=== PATIENT | female | born 1970 | race Hispanic/Latino ===

== ENCOUNTER 2021-01-27 18:14 | Inpatient (IN) | payer OTHER ==
[~2021-01-27] VITALS: Ht 160 cm; Wt 94.8 kg
[2021-01-27] MEDS ORDERED: SODIUM CHLORIDE 0.9% 1000ML 1,000 ML IV STA (18:17)
[2021-01-27 18:59] LABS: BASOPHILS % 0.4 % (0.0-1.0); EOSINOPHILS # (AUTO) 0.2 (0.0-0.4); EOSINOPHILS % 2.7 % (0.0-6.0); HEMOGLOBIN 12.7 g/dL (12.0-16.0); LYMPHOCYTES # (AUTO) 2.8 (1.0-3.2); LYMPHOCYTES % 37.8 % (18.0-39.1); MEAN CORPUSCULAR HEMOGLOBIN 29.7 pg (28-32); MEAN CORPUSCULAR HGB CONC 32.6 g/dL (31-35); MEAN CORPUSCULAR VOLUME 91.1 fL (81-99); MONOCYTES # (AUTO) 0.5 (0.2-0.8); MONOCYTES % 6.7 % (4.4-11.3); NEUTROPHILS # (AUTO) 3.9 (2.1-6.9); PLATELET COUNT 149 x10e3/uL (140-360); RED BLOOD COUNT 4.28 x10e6/uL (3.6-5.1); RED CELL DISTRIBUTION WIDTH 13.2 % (11.7-14.4)
[2021-01-27 19:21] LABS: ALBUMIN 4.1 g/dL (3.5-5.0); ANION GAP 19.6 mmol/L (8-16); CALCIUM 9.3 mg/dL (8.4-10.2); CREATININE, SERUM 0.75 mg/dL (0.57-1.11); POTASSIUM 3.6 mmol/L (3.5-5.1)
[2021-01-27 19:27] LABS: CREATINE KINASE MB 0.3 ng/mL (0-5.0)
[2021-01-27] MEDS ORDERED: Morphine 4mg Syringe 4 MG/ML INJ IV STA (20:12)
[2021-01-27] MEDS ORDERED: PREDNISONE 20 MG TAB PO STA (20:24)
[2021-01-27] MEDS ORDERED: ONDANSETRON HCL INJ 2MG/ML 2ML 2 MG/ML VIAL ONE (20:58)
[2021-01-27] MEDS ORDERED: ONDANSETRON HCL INJ 2MG/ML 2ML 2 MG/ML VIAL IV STA (21:07)
[2021-01-27 21:44] VITALS: BP 138/83
[2021-01-27 21:57] VITALS: BP 138/83
[2021-01-27] MEDS: ACETAMINOPHEN 325 MG TAB PO PRN (22:39)
[2021-01-27] MEDS ORDERED: METFORMIN HCL500 MG PO (23:10)
[2021-01-27] MEDS ORDERED: LISINOPRIL5 MG PO (23:10)
[2021-01-27] MEDS ORDERED: LEVOTHYROXINE50 MCG PO (23:10)
[2021-01-27] MEDS ORDERED: GLIPIZIDE5 MG PO (23:10)
[2021-01-27] MEDS ORDERED: JARDIANCE25 MG PO (23:10)
[2021-01-27] MEDS: ACYCLOVIR 200 MG CAP PO SCH (23:58)
[2021-01-28] VITALS (9 sets, daily range): BP systolic 101–135; BP diastolic 61–77
[2021-01-28] MEDS: Morphine 4mg Syringe 4 MG/ML INJ IV PRN ×3 (02:48→17:20)
[2021-01-28 05:36] LABS: BASOPHILS % 0.3 % (0.0-1.0); EOSINOPHILS # (AUTO) 0.1 (0.0-0.4); EOSINOPHILS % 0.9 % (0.0-6.0); HEMATOCRIT 36.5 % (34.2-44.1); HEMOGLOBIN 11.8 g/dL (12.0-16.0); LYMPHOCYTES # (AUTO) 1.4 (1.0-3.2); LYMPHOCYTES % 17.8 % (18.0-39.1); MEAN CORPUSCULAR HEMOGLOBIN 29.7 pg (28-32); MEAN CORPUSCULAR HGB CONC 32.3 g/dL (31-35); MEAN CORPUSCULAR VOLUME 91.9 fL (81-99); MONOCYTES # (AUTO) 0.2 (0.2-0.8); NEUTROPHILS # (AUTO) 6.3 (2.1-6.9); NEUTROPHILS % 78.4 % (38.7-80.0); PLATELET COUNT 133 x10e3/uL (140-360); RED BLOOD COUNT 3.97 x10e6/uL (3.6-5.1); RED CELL DISTRIBUTION WIDTH 13.2 % (11.7-14.4)
[2021-01-28 05:45] LABS: INR 0.95; PROTHROMBIN TIME 13.4 seconds (11.9-14.5)
[2021-01-28 06:02] LABS: CREATINE KINASE MB 0.3 ng/mL (0-5.0)
[2021-01-28 07:03] LABS: CHOL/HDL RATIO 14.7 (3.0-3.6); CHOLESTEROL 442 MD/DL (0-199); HDL CHOLESTEROL 30 MG/DL (40-60)
[2021-01-28 07:36] LABS: TRIGLYCERIDES 1608 MG/DL (0-149)
[2021-01-28] MEDS: ACYCLOVIR 200 MG CAP PO SCH ×4 (07:44→23:58)
[2021-01-28] MEDS: ACETAMINOPHEN 325 MG TAB PO PRN ×3 (07:45→23:16)
[2021-01-28 08:17] LABS: ALBUMIN 3.6 g/dL (3.5-5.0); ANION GAP 19.2 mmol/L (8-16); CALCIUM 8.7 mg/dL (8.4-10.2); CREATININE, SERUM 0.75 mg/dL (0.57-1.11); POTASSIUM 4.2 mmol/L (3.5-5.1)
[2021-01-28] MEDS: LEVOTHYROXINE SODIUM 50 MCG TAB PO SCH (10:31)
[2021-01-28] MEDS: LISINOPRIL 2.5 MG TAB PO SCH (10:32)
[2021-01-28] MEDS: FENOFIBRATE 145 MG TAB PO SCH (11:07)
[2021-01-28] MEDS ORDERED: INSULIN LISPRO 100 UNIT/1 ML 3ML VIAL SQ SCH (11:30)
[2021-01-28 15:23] LABS: FREE T4 (FREE THYROXINE) 1.07 ng/dL (0.8-1.8); THYROID STIMULATING HORMONE 0.834 uIU/mL (0.350-4.940)
[2021-01-28 16:31] LABS: CREATINE KINASE MB 0.2 ng/mL (0-5.0)
[2021-01-28] MEDS: METFORMIN HCL 500 MG TAB PO SCH (16:42)
[2021-01-28] MEDS: PREDNISONE 10 MG TAB PO SCH (16:42)
[2021-01-28] MEDS: INSULIN LISPRO 100 UNIT/1 ML 3ML VIAL SQ SCH ×3 (16:56→21:16)
[2021-01-28] MEDS ORDERED: GLIPIZIDE 5 MG TAB PO SCH (17:00)
[2021-01-28] MEDS ORDERED: PREDNISONE 20 MG TAB PO SCH (17:00)
[2021-01-28] MEDS ORDERED: INSULIN GLARGINE 100 UNITS/ML VIAL SQ SCH (21:00)
[2021-01-28] MEDS: ATORVASTATIN 40 MG TAB PO SCH (21:00)
[2021-01-28] MEDS ORDERED: ATORVASTATIN 40 MG TAB PO SCH ×2 (21:00)
[2021-01-28] MEDS: INSULIN GLARGINE 100 UNITS/ML VIAL SQ SCH (21:17)
[2021-01-28] MEDS: ONDANSETRON HCL INJ 2MG/ML 2ML 2 MG/ML VIAL IV PRN (23:16)
[2021-01-29] MEDS: Morphine 4mg Syringe 4 MG/ML INJ IV PRN ×4 (00:07→20:38)
[2021-01-29] MEDS ORDERED: LIPITOR20 MG PO (01:43)
[2021-01-29] MEDS ORDERED: ACTOS15 MG PO (01:43)
[2021-01-29] MEDS ORDERED: TRICOR145 MG PO (01:43)
[2021-01-29 04:00] VITALS: BP 111/76
[2021-01-29] MEDS: ACYCLOVIR 200 MG CAP PO SCH ×3 (06:17→18:02)
[2021-01-29] MEDS: ONDANSETRON HCL INJ 2MG/ML 2ML 2 MG/ML VIAL IV PRN ×2 (06:17→19:06)
[2021-01-29] MEDS: INSULIN LISPRO 100 UNIT/1 ML 3ML VIAL SQ SCH ×7 (07:30→21:55)
[2021-01-29] MEDS: FENOFIBRATE 145 MG TAB PO SCH (08:44)
[2021-01-29] MEDS: METFORMIN HCL 500 MG TAB PO SCH ×2 (08:44→18:02)
[2021-01-29] MEDS: LISINOPRIL 2.5 MG TAB PO SCH (08:44)
[2021-01-29] MEDS: LEVOTHYROXINE SODIUM 50 MCG TAB PO SCH (08:44)
[2021-01-29] MEDS: PREDNISONE 10 MG TAB PO SCH (08:44)
[2021-01-29 08:47] VITALS: BP 95/66
[2021-01-29] MEDS: ACETAMINOPHEN 325 MG TAB PO PRN ×2 (09:46→22:31)
[2021-01-29 11:26] VITALS: BP 100/70
[2021-01-29] MEDS ORDERED: SODIUM CHLORIDE 0.9% 50ML 50 ML ONE (11:34)
[2021-01-29] MEDS ORDERED: GADOBENATE DIMEGLUMINE 1 ML IV ONE (11:35)
[2021-01-29] MEDS: TOPIRAMATE 25 MG TAB PO SCH ×2 (12:20→18:02)
[2021-01-29 15:54] VITALS: BP 111/80
[2021-01-29] MEDS: EYE LUBRICANT OPTH OINT 3.5GM TUBE OP SCH (15:59)
[2021-01-29] MEDS: FAMOTIDINE 20 MG TAB PO SCH (18:02)
[2021-01-29 20:00] VITALS: BP 107/75
[2021-01-29] MEDS: ATORVASTATIN 40 MG TAB PO SCH (21:55)
[2021-01-29] MEDS: ENOXAPARIN 30 MG/0.3 ML SYR SC SCH (21:55)
[2021-01-29] MEDS: INSULIN GLARGINE 100 UNITS/ML VIAL SQ SCH (21:55)
[2021-01-30] VITALS (7 sets, daily range): BP systolic 104–120; BP diastolic 60–79
[2021-01-30 05:24] LABS: BASOPHILS % 0.5 % (0.0-1.0); EOSINOPHILS # (AUTO) 0.2 (0.0-0.4); HEMATOCRIT 34.7 % (34.2-44.1); HEMOGLOBIN 11.3 g/dL (12.0-16.0); LYMPHOCYTES # (AUTO) 3.2 (1.0-3.2); LYMPHOCYTES % 49.6 % (18.0-39.1); MEAN CORPUSCULAR HEMOGLOBIN 29.7 pg (28-32); MEAN CORPUSCULAR HGB CONC 32.6 g/dL (31-35); MEAN CORPUSCULAR VOLUME 91.1 fL (81-99); MONOCYTES # (AUTO) 0.4 (0.2-0.8); MONOCYTES % 6.5 % (4.4-11.3); NEUTROPHILS # (AUTO) 2.6 (2.1-6.9); NEUTROPHILS % 39.8 % (38.7-80.0); PLATELET COUNT 143 x10e3/uL (140-360); RED BLOOD COUNT 3.81 x10e6/uL (3.6-5.1); RED CELL DISTRIBUTION WIDTH 13.4 % (11.7-14.4)
[2021-01-30 05:58] LABS: ALANINE AMINOTRANSFERASE 16 IU/L (0-55); ALBUMIN 3.4 g/dL (3.5-5.0); ALKALINE PHOSPHATASE 61 IU/L (40-150); ANION GAP 11.6 mmol/L (8-16); BLOOD UREA NITROGEN 16 mg/dL (7-26); BUN/CREATININE RATIO 21 (6-25); CALCIUM 8.9 mg/dL (8.4-10.2); CARBON DIOXIDE 25 mmol/L (22-29); CHLORIDE 102 mmol/L (98-107); CHOL/HDL RATIO 11.1 (3.0-3.6); CHOLESTEROL 412 MD/DL (0-199); CREATININE, SERUM 0.75 mg/dL (0.57-1.11); EST GLOMERULAR FILTRATION RATE 81 ML/MIN (60-); GLUCOSE 174 mg/dL (74-118); HDL CHOLESTEROL 37 MG/DL (40-60); POTASSIUM 3.6 mmol/L (3.5-5.1); SODIUM 135 mmol/L (136-145); TRIGLYCERIDES 1159 MG/DL (0-149)
[2021-01-30] MEDS: ACYCLOVIR 200 MG CAP PO SCH ×4 (06:45→17:43)
[2021-01-30] MEDS: INSULIN LISPRO 100 UNIT/1 ML 3ML VIAL SQ SCH ×7 (08:30→22:48)
[2021-01-30] MEDS: Morphine 4mg Syringe 4 MG/ML INJ IV PRN (09:22)
[2021-01-30] MEDS: METFORMIN HCL 500 MG TAB PO SCH ×2 (09:37→17:43)
[2021-01-30] MEDS: LISINOPRIL 2.5 MG TAB PO SCH (09:53)
[2021-01-30] MEDS: EYE LUBRICANT OPTH OINT 3.5GM TUBE OP SCH (09:53)
[2021-01-30] MEDS: LEVOTHYROXINE SODIUM 50 MCG TAB PO SCH (09:54)
[2021-01-30] MEDS: FENOFIBRATE 145 MG TAB PO SCH (09:54)
[2021-01-30] MEDS: ENOXAPARIN 30 MG/0.3 ML SYR SC SCH ×2 (09:54→21:56)
[2021-01-30] MEDS: TOPIRAMATE 25 MG TAB PO SCH (09:54)
[2021-01-30] MEDS: GABAPENTIN 100 MG CAP PO SCH (14:42)
[2021-01-30] MEDS ORDERED: VALPROATE SOD INJ 500 MG in SODIUM CHLORIDE 0.9% 100 ML 100 ML INJ SCH (17:00)
[2021-01-30] MEDS ORDERED: VALPROATE SOD INJ 500 MG in SODIUM CHLORIDE 0.9% 100 ML 100 ML INJ ONE (17:00)
[2021-01-30] MEDS: FAMOTIDINE 20 MG TAB PO SCH (17:43)
[2021-01-30] MEDS ORDERED: SODIUM CHLORIDE 0.9% 50ML 50 ML ONE (18:00)
[2021-01-30] MEDS ORDERED: CARISOPRODOL 350 MG TAB PO PRN (20:00)
[2021-01-30] MEDS ORDERED: ACETAMIN/BUTALBITAL/CAFFEINE TAB PO ONE (20:30)
[2021-01-30] MEDS: ATORVASTATIN 40 MG TAB PO SCH (21:55)
[2021-01-30] MEDS: INSULIN GLARGINE 100 UNITS/ML VIAL SQ SCH (22:49)
[2021-01-31] VITALS: BP 82/55
[2021-01-31] MEDS: ACYCLOVIR 200 MG CAP PO SCH ×3 (00:15→12:32)
[2021-01-31] MEDS: GABAPENTIN 100 MG CAP PO SCH ×2 (00:15→09:06)
[2021-01-31 04:00] VITALS: BP 94/66
[2021-01-31 05:48] LABS: BASOPHILS % 0.4 % (0.0-1.0); EOSINOPHILS # (AUTO) 0.2 (0.0-0.4); EOSINOPHILS % 3.5 % (0.0-6.0); HEMATOCRIT 36.4 % (34.2-44.1); HEMOGLOBIN 11.8 g/dL (12.0-16.0); LYMPHOCYTES # (AUTO) 2.8 (1.0-3.2); LYMPHOCYTES % 49.7 % (18.0-39.1); MEAN CORPUSCULAR HEMOGLOBIN 29.8 pg (28-32); MEAN CORPUSCULAR HGB CONC 32.4 g/dL (31-35); MEAN CORPUSCULAR VOLUME 91.9 fL (81-99); MONOCYTES # (AUTO) 0.5 (0.2-0.8); MONOCYTES % 8.2 % (4.4-11.3); NEUTROPHILS # (AUTO) 2.2 (2.1-6.9); NEUTROPHILS % 37.7 % (38.7-80.0); PLATELET COUNT 146 x10e3/uL (140-360); RED BLOOD COUNT 3.96 x10e6/uL (3.6-5.1); RED CELL DISTRIBUTION WIDTH 13.4 % (11.7-14.4)
[2021-01-31 06:18] LABS: ALBUMIN 3.4 g/dL (3.5-5.0); ALBUMIN/GLOBULIN RATIO 0.9 (0.8-2.0); ANION GAP 16.9 mmol/L (8-16); CREATININE, SERUM 0.72 mg/dL (0.57-1.11); POTASSIUM 3.9 mmol/L (3.5-5.1)
[2021-01-31 08:35] VITALS: BP 106/75
[2021-01-31] MEDS ORDERED: NEURONTIN300 MG PO (08:52)
[2021-01-31] MEDS ORDERED: ACYCLOVIR800 MG PO (08:52)
[2021-01-31] MEDS ORDERED: LEVEMIR100 UNIT/1 SQ (08:52)
[2021-01-31] MEDS ORDERED: LIPITOR20 MG PO (08:52)
[2021-01-31] MEDS ORDERED: HUMALOG100 UNIT/1 SQ (08:52)
[2021-01-31] MEDS ORDERED: SOMA350 MG PO (08:52)
[2021-01-31 08:55] VITALS: BP 106/75
[2021-01-31] MEDS: INSULIN LISPRO 100 UNIT/1 ML 3ML VIAL SQ SCH ×4 (09:00→12:30)
[2021-01-31] MEDS: METFORMIN HCL 500 MG TAB PO SCH (09:05)
[2021-01-31] MEDS: LISINOPRIL 2.5 MG TAB PO SCH (09:06)
[2021-01-31] MEDS: LEVOTHYROXINE SODIUM 50 MCG TAB PO SCH (09:06)
[2021-01-31] MEDS: FENOFIBRATE 145 MG TAB PO SCH (09:06)
[2021-01-31] MEDS: ENOXAPARIN 30 MG/0.3 ML SYR SC SCH (09:08)
[2021-01-31] MEDS: EYE LUBRICANT OPTH OINT 3.5GM TUBE OP SCH (09:10)
[2021-01-31] MEDS ORDERED: ONDANSETRON HCL 4 MG ORAL DISINTEGRATING TAB PO PRN (11:30)
[2021-01-31 12:35] VITALS: BP 115/83
== END 2021-01-31 12:32 | disposition home or self-care (01) | DRG 74 ==
LOC: ER 18:33 → ERHOLD 20:29 → MED/SURG 22:00 → OBSVTOIN 01-29 10:55
PROVIDERS: ADMIT Internal Medicine; ATTEND Internal Medicine
DX: G51.0 Bell's palsy (principal); G43.909 Migraine, unspecified, not intractable, without status migrainosus; E11.42 Type 2 diabetes mellitus with diabetic polyneuropathy; E78.1 Pure hyperglyceridemia; E78.5 Hyperlipidemia, unspecified; I10 Essential (primary) hypertension; E03.9 Hypothyroidism, unspecified; G43.809 Other migraine, not intractable, without status migrainosus; Z20.822 Contact with and (suspected) exposure to COVID-19; Z79.4 Long term (current) use of insulin
CPT/HCPCS: 36415; 70450; 70544; 70546; 70547; 70551; 71045; 80053; 80061; 82550; 82553; 82948; 83036; 83735; 83880; 84439; 84443; 84484; 85025; 85610; 93005; 93306; 94799; 99284; G0378; J1650; J1815; J2270; J2405; J7030; J7512; U0002